=== PATIENT | male | born 1945 | race Caucasian/White ===

== ENCOUNTER 2016-09-15 08:00 | Outpatient (CLI) | payer MEDICARE | END 2016-09-15 08:01 | disposition home or self-care (01) | DX: J11.1 Influenza due to unidentified influenza virus with other respiratory manifestations (principal) ==

== ENCOUNTER 2016-11-22 10:32 | Outpatient (CLI) | payer MEDICARE, MEDICAID | END 2016-11-22 10:33 | disposition critical access hospital (66) | DX: R03.1 Nonspecific low blood-pressure reading (principal); R61 Generalized hyperhidrosis; R23.1 Pallor | CPT/HCPCS: A0425; A0429 ==

== ENCOUNTER 2016-11-22 10:35 | Inpatient (IN) | payer MEDICARE, MEDICAID ==
[2016-11-22] MEDS ORDERED: SODIUM CHLORIDE 0.9% 1,000 ML IV ONE ×2 (11:28→11:31)
[2016-11-22] MEDS ORDERED: ONDANSETRON 4 MG/2 ML VIAL IVP STA (11:29)
[2016-11-22] MEDS ORDERED: ONDANSETRON 4 MG/2 ML VIAL ONE (11:31)
[2016-11-22] MEDS ORDERED: cefTRIAXone 1 GM in SODIUM CHLORIDE 0.9% MINIBAG 100 ML IV STA (13:20)
[2016-11-22] MEDS ORDERED: cefTRIAXone 1 GM VIAL ONE (13:24)
[2016-11-22] MEDS ORDERED: oxyCODONE 5 MG TABLET PO PRN (13:29)
[2016-11-22] MEDS ORDERED: PROCHLORPERAZINE 10 MG/2 ML VIAL IVP PRN (13:29)
[2016-11-22] MEDS ORDERED: SODIUM CHLORIDE FLUSH 0.9% 10 ML SYRINGE IVP PRN (13:29)
[2016-11-22] MEDS ORDERED: ONDANSETRON 4 MG/2 ML VIAL IVP PRN (13:29)
[2016-11-22] MEDS: SODIUM CHLORIDE FLUSH 0.9% 10 ML SYRINGE IVP SCH ×2 (14:37→22:11)
[2016-11-22] MEDS: SODIUM CHLORIDE 0.9% 1,000 ML IV SCH (14:37)
[2016-11-22] MEDS ORDERED: PIPERACILLIN/TAZOBACTAM 3.375 GM in SODIUM CHLORIDE 0.9% MINIBAG 100 ML IV ONE (17:00)
[2016-11-22] MEDS: ACETAMINOPHEN 325 MG TABLET PO PRN ×2 (18:01→22:11)
[2016-11-22] MEDS: SACCHAROMYCES BOULARDII 250 MG CAPSULE PO SCH (18:02)
[2016-11-22] MEDS: PIPERACILLIN/TAZOBACTAM 3.375 GM in SODIUM CHLORIDE 0.9% MINIBAG 100 ML IV SCH (19:44)
[2016-11-22] MEDS ORDERED: IBUPROFEN 100 MG/5 ML UDC NG PRN (21:56)
[2016-11-23] MEDS: SODIUM CHLORIDE 0.9% 1,000 ML IV SCH ×4 (00:23→23:57)
[2016-11-23] MEDS: PIPERACILLIN/TAZOBACTAM 3.375 GM in SODIUM CHLORIDE 0.9% MINIBAG 100 ML IV SCH ×3 (04:28→20:21)
[2016-11-23] MEDS ORDERED: LIDOCAINE VISCOUS 2% 15 ML UDC MM PRN (06:12)
[2016-11-23] MEDS ORDERED: LIDOCAINE JELLY 2% 5 ML TUBE TOP ONE (06:12)
[2016-11-23] MEDS: SODIUM CHLORIDE FLUSH 0.9% 10 ML SYRINGE IVP SCH ×3 (07:34→20:21)
[2016-11-23] MEDS: PANTOPRAZOLE 40 MG TABLET PO SCH (07:35)
[2016-11-23] MEDS ORDERED: cefTRIAXone 1 GM in SODIUM CHLORIDE 0.9% MINIBAG 100 ML IV SCH (09:00)
[2016-11-23] MEDS: ENOXAPARIN 40 MG/0.4 ML SYRINGE SUBQ SCH (12:02)
[2016-11-23] MEDS: SERTRALINE 25 MG TABLET PO SCH (12:02)
[2016-11-23] MEDS: POLYETHYLENE GLYCOL 3350 17 GM PACKET PO SCH (12:02)
[2016-11-23] MEDS: SACCHAROMYCES BOULARDII 250 MG CAPSULE PO SCH ×2 (12:02→17:07)
[2016-11-23] MEDS: ACETAMINOPHEN 325 MG TABLET PO PRN (17:07)
[2016-11-24] MEDS: ACETAMINOPHEN 325 MG TABLET PO PRN ×2 (00:05→17:17)
[2016-11-24] MEDS: PIPERACILLIN/TAZOBACTAM 3.375 GM in SODIUM CHLORIDE 0.9% MINIBAG 100 ML IV SCH ×3 (04:24→20:26)
[2016-11-24] MEDS: PANTOPRAZOLE 40 MG TABLET PO SCH (06:31)
[2016-11-24] MEDS: SODIUM CHLORIDE FLUSH 0.9% 10 ML SYRINGE IVP SCH ×3 (06:32→23:19)
[2016-11-24] MEDS: SACCHAROMYCES BOULARDII 250 MG CAPSULE PO SCH ×2 (06:32→17:17)
[2016-11-24] MEDS: ENOXAPARIN 40 MG/0.4 ML SYRINGE SUBQ SCH (06:36)
[2016-11-24] MEDS: POLYETHYLENE GLYCOL 3350 17 GM PACKET PO SCH (08:30)
[2016-11-24] MEDS: SERTRALINE 25 MG TABLET PO SCH (08:33)
[2016-11-24] MEDS: LORazepam 2 MG/ML SYRINGE IVP PRN (12:09)
[2016-11-24] MEDS: SODIUM CHLORIDE 0.9% 1,000 ML IV SCH (18:02)
[2016-11-24] MEDS ORDERED: SODIUM CHLORIDE 0.9% 100ML 100 ML IV ONE (20:12)
[2016-11-25] MEDS: SODIUM CHLORIDE 0.9% 1,000 ML IV SCH ×2 (03:40→12:46)
[2016-11-25] MEDS: PIPERACILLIN/TAZOBACTAM 3.375 GM in SODIUM CHLORIDE 0.9% MINIBAG 100 ML IV SCH ×3 (03:40→20:01)
[2016-11-25] MEDS: PANTOPRAZOLE 40 MG TABLET PO SCH (06:22)
[2016-11-25] MEDS: SODIUM CHLORIDE FLUSH 0.9% 10 ML SYRINGE IVP SCH ×3 (06:23→21:22)
[2016-11-25] MEDS: ENOXAPARIN 40 MG/0.4 ML SYRINGE SUBQ SCH (10:00)
[2016-11-25] MEDS: POLYETHYLENE GLYCOL 3350 17 GM PACKET PO SCH (10:01)
[2016-11-25] MEDS: SERTRALINE 25 MG TABLET PO SCH (10:01)
[2016-11-25] MEDS: SACCHAROMYCES BOULARDII 250 MG CAPSULE PO SCH ×2 (10:01→17:59)
[2016-11-25] MEDS ORDERED: POTASSIUM CHLORIDE 20 MEQ/15 ML UDC PO SCH (11:00)
[2016-11-25] MEDS: POTASSIUM CHLORIDE 20 MEQ/15 ML UDC PO SCH (14:12)
[2016-11-25] MEDS ORDERED: SODIUM CHLORIDE 0.9% 100ML 100 ML IV ONE (19:50)
[2016-11-25] MEDS: D5.45NS W/20 MEQ KCL 1,000 ML IV SCH (21:22)
[2016-11-25] MEDS: LORazepam 2 MG/ML SYRINGE IVP PRN (21:22)
[2016-11-25] MEDS: ACETAMINOPHEN 325 MG TABLET PO PRN (21:49)
[2016-11-26] MEDS: PIPERACILLIN/TAZOBACTAM 3.375 GM in SODIUM CHLORIDE 0.9% MINIBAG 100 ML IV SCH ×3 (04:16→20:49)
[2016-11-26] MEDS: D5.45NS W/20 MEQ KCL 1,000 ML IV SCH ×3 (04:40→21:50)
[2016-11-26] MEDS: SODIUM CHLORIDE FLUSH 0.9% 10 ML SYRINGE IVP SCH ×3 (06:22→21:50)
[2016-11-26] MEDS: PANTOPRAZOLE 40 MG TABLET PO SCH (06:22)
[2016-11-26] MEDS: POTASSIUM CHLORIDE 20 MEQ/15 ML UDC PO SCH (08:40)
[2016-11-26] MEDS: POLYETHYLENE GLYCOL 3350 17 GM PACKET PO SCH (08:41)
[2016-11-26] MEDS: SACCHAROMYCES BOULARDII 250 MG CAPSULE PO SCH ×2 (08:41→17:59)
[2016-11-26] MEDS: ENOXAPARIN 40 MG/0.4 ML SYRINGE SUBQ SCH (08:41)
[2016-11-26] MEDS: SERTRALINE 25 MG TABLET PO SCH (08:41)
[2016-11-26] MEDS ORDERED: SODIUM CHLORIDE FLUSH 0.9% 10 ML SYRINGE IVP PRN (16:41)
[2016-11-26] MEDS ORDERED: ACETAMINOPHEN 325 MG TABLET PO PRN (16:42)
[2016-11-26] MEDS ORDERED: oxyCODONE 5 MG TABLET PO PRN (16:42)
[2016-11-26] MEDS ORDERED: ONDANSETRON 4 MG/2 ML VIAL IVP PRN (16:42)
[2016-11-26] MEDS ORDERED: PROCHLORPERAZINE 10 MG/2 ML VIAL IVP PRN (16:43)
[2016-11-26] MEDS ORDERED: IBUPROFEN 100 MG/5 ML UDC NG PRN (16:44)
[2016-11-26] MEDS ORDERED: LORazepam 2 MG/ML SYRINGE IVP PRN (16:45)
[2016-11-26] MEDS ORDERED: D5.45NS W/20 MEQ KCL 1,000 ML IV SCH (17:00)
[2016-11-26] MEDS ORDERED: SODIUM CHLORIDE 0.9% 100ML 100 ML IV ONE (20:30)
[2016-11-27] MEDS ORDERED: SODIUM CHLORIDE 0.9% 100ML 100 ML IV ONE (03:53)
[2016-11-27] MEDS: PIPERACILLIN/TAZOBACTAM 3.375 GM in SODIUM CHLORIDE 0.9% MINIBAG 100 ML IV SCH (03:57)
[2016-11-27] MEDS ORDERED: PANTOPRAZOLE 40 MG TABLET PO SCH (07:00)
[2016-11-27] MEDS ORDERED: POTASSIUM CHLORIDE 20 MEQ/15 ML UDC PO SCH (08:00)
[2016-11-27] MEDS ORDERED: SERTRALINE 25 MG TABLET PO SCH (09:00)
[2016-11-27] MEDS ORDERED: POLYETHYLENE GLYCOL 3350 17 GM PACKET PO SCH (09:00)
[2016-11-27] MEDS ORDERED: ENOXAPARIN 40 MG/0.4 ML SYRINGE SUBQ SCH (09:00)
[2016-11-27] MEDS: SACCHAROMYCES BOULARDII 250 MG CAPSULE PO SCH (10:03)
[2016-11-27] MEDS: SODIUM CHLORIDE FLUSH 0.9% 10 ML SYRINGE IVP SCH (10:04)
[2016-11-27] MEDS: D5.45NS W/20 MEQ KCL 1,000 ML IV SCH (11:09)
[2016-11-27] MEDS ORDERED: PIPERACILLIN/TAZOBACTAM 3.375 GM in SODIUM CHLORIDE 0.9% MINIBAG 100 ML IV SCH (13:00)
== END 2016-11-27 15:33 | DRG 871 ==
DX: A41.9 Sepsis, unspecified organism (principal); I95.9 Hypotension, unspecified; E11.9 Type 2 diabetes mellitus without complications; Z79.01 Long term (current) use of anticoagulants; G93.41 Metabolic encephalopathy; N10 Acute pyelonephritis; N17.9 Acute kidney failure, unspecified; B96.20 Unspecified Escherichia coli [E. coli] as the cause of diseases classified elsewhere; R65.20 Severe sepsis without septic shock; E86.0 Dehydration; R13.10 Dysphagia, unspecified; G30.9 Alzheimer's disease, unspecified; F02.80 Dementia in other diseases classified elsewhere, unspecified severity, without behavioral disturbance, psychotic disturbance, mood disturbance, and anxiety; G40.909 Epilepsy, unspecified, not intractable, without status epilepticus; N18.2 Chronic kidney disease, stage 2 (mild); Z66 Do not resuscitate; Z79.1 Long term (current) use of non-steroidal anti-inflammatories (NSAID); Z99.3 Dependence on wheelchair; Z86.73 Personal history of transient ischemic attack (TIA), and cerebral infarction without residual deficits; Z87.891 Personal history of nicotine dependence